=== PATIENT | female | born 1955 | race Caucasian/White ===

== ENCOUNTER 2018-03-29 18:28 | Inpatient (IN) | payer OTHER ==
[~2018-03-29] VITALS: Ht 152.4 cm; Wt 61.2 kg
[2018-03-29 18:37] VITALS: BP 122/64
[2018-03-29] MEDS ORDERED: AMOXICILLIN 50500 MG PO (18:42)
[2018-03-29] MEDS ORDERED: SIMVASTATIN40 MG PO (18:43)
[2018-03-29] MEDS ORDERED: AMLODIPINE BESY10 MG PO (18:43)
[2018-03-29] MEDS ORDERED: HYDROCODONE-AP1 EAC6 PO (18:43)
[2018-03-29] MEDS ORDERED: AMITRIPTYLINE H10 M1 PO (18:43)
[2018-03-29] MEDS ORDERED: [UNRECOGNIZED DRUG - REMARK] (18:45)
[2018-03-29] MEDS ORDERED: [UNRECOGNIZED DRUG - REMARK] (18:45)
[2018-03-29] MEDS ORDERED: ALLERGY PILL (18:45)
[2018-03-29] MEDS ORDERED: SYMBICORT80 MCG/4.1 INH (18:46)
[2018-03-29] MEDS ORDERED: SPIRIVA INH (18:46)
[2018-03-29] MEDS ORDERED: ACCUNEB SO1.25 MG/1 INH (18:46)
[2018-03-29] MEDS ORDERED: CENTRUM SILVER1 EAC4 PO (18:47)
[2018-03-29] MEDS ORDERED: FISH OIL 1,001000 M2 PO (18:47)
[2018-03-29 18:56] LABS: URINE BILIRUBIN NEGATIVE (Negative); URINE BLOOD NEGATIVE (Negative); URINE CLARITY CLEAR; URINE COLOR YELLOW; URINE GLUCOSE-RANDOM NEGATIVE (Negative); URINE KETONES 1+ (Negative); URINE LEUKOCYTES-REFLEX NEGATIVE (Negative); URINE NITRITE-REFLEX NEGATIVE (Negative); URINE PROTEIN NEGATIVE (Negative); URINE SPECIFIC GRAVITY 1.015 (1.005-1.030); URINE UROBILINOGEN 0.2 E.U./dl (0.2-1.0)
[2018-03-29 19:11] LABS: HEMATOCRIT 44.1 % (37.0-47.0); MCH 32.7 pg (26.0-34.0); MCHC 34.1 g/dL (28.0-37.0); MCV 95.9 fL (80.0-100.0); MPV 7.8 fl. (7.2-11.1); NUCLEATED RBCS 0 /100WBC; PLATELET COUNT* 316 thou/uL (150-400); RDW-CV 14.1 % (10.5-14.5); WBC 19.1 thou/uL (4.0-11.0)
[2018-03-29 19:19] LABS: APTT 26.8 Seconds (25.0-31.3)
[2018-03-29 19:20] LABS: CALCIUM 9.2 mg/dL (8.5-10.1); CREATININE 0.7 mg/dL (0.6-1.3); POTASSIUM 3.7 mmol/L (3.5-5.1)
[2018-03-29 19:24] LABS: ALBUMIN 3.5 g/dL (3.4-5.0); TOTAL BILIRUBIN 0.5 mg/dL (<0.1-1.0)
[2018-03-29 19:38] LABS: ABSOLUTE LYMPHOCYTES 1.9 thou/uL (0.8-5.3); ABSOLUTE MONOCYTES 1.9 thou/uL (0.0-1.2); ABSOLUTE NEUTROPHILS 15.3 thou/uL (1.6-8.1)
[2018-03-29 19:39] LABS: PLATELET ESTIMATE ADEQUATE
[2018-03-29 19:42] LABS: TOTAL PROTEIN 7.1 g/dL (6.4-8.2)
[2018-03-29] MEDS ORDERED: MUSCLE RELAXER (22:42)
[2018-03-29 22:50] VITALS: BP 102/51
[2018-03-29 23:15] VITALS: BP 112/61
[2018-03-30] MEDS ORDERED: PROTONIX40 M4 PO (05:31)
[2018-03-30] MEDS ORDERED: ZANAFLEX4 M2 PO (06:31)
[2018-03-30 08:04] VITALS: BP 115/57
[2018-03-30 16:03] VITALS: BP 119/60
[2018-03-30 23:51] VITALS: BP 100/57
[2018-03-31 04:05] LABS: HEMATOCRIT 37.6 % (37.0-47.0); MCH 32.4 pg (26.0-34.0); MCHC 33.6 g/dL (28.0-37.0); MCV 96.5 fL (80.0-100.0); MPV 7.9 fl. (7.2-11.1); RBC 3.89 mil/uL (4.20-5.00); WBC 11.9 thou/uL (4.0-11.0)
[2018-03-31 04:14] LABS: HEMOGLOBIN 12.6 gm/dL (12.0-15.0)
[2018-03-31 04:35] LABS: CALCIUM 8.8 mg/dL (8.5-10.1); CREATININE 0.8 mg/dL (0.6-1.3); MAGNESIUM 1.8 mg/dL (1.8-2.4); POTASSIUM 4.3 mmol/L (3.5-5.1)
[2018-03-31 08:20] VITALS: BP 106/55
[2018-03-31 15:52] VITALS: BP 98/52
[2018-03-31 20:36] VITALS: BP 112/55
[2018-04-01 04:28] LABS: HEMATOCRIT 38.9 % (37.0-47.0); HEMOGLOBIN 12.8 gm/dL (12.0-15.0); MCH 31.5 pg (26.0-34.0); MCHC 32.9 g/dL (28.0-37.0); MCV 95.7 fL (80.0-100.0); MPV 8.1 fl. (7.2-11.1); RBC 4.07 mil/uL (4.20-5.00); RDW-CV 13.8 % (10.5-14.5); WBC 11.5 thou/uL (4.0-11.0)
[2018-04-01 04:45] LABS: CALCIUM 8.3 mg/dL (8.5-10.1); CREATININE 0.5 mg/dL (0.6-1.3); MAGNESIUM 1.5 mg/dL (1.8-2.4); POTASSIUM 3.6 mmol/L (3.5-5.1)
[2018-04-01 08:20] VITALS: BP 123/63
[2018-04-01 15:54] VITALS: BP 124/60
[2018-04-02] VITALS: BP 111/63
[2018-04-02 04:21] LABS: HEMATOCRIT 39.3 % (37.0-47.0); HEMOGLOBIN 13.2 gm/dL (12.0-15.0); MCH 32.4 pg (26.0-34.0); MCHC 33.5 g/dL (28.0-37.0); MCV 96.8 fL (80.0-100.0); MPV 8.1 fl. (7.2-11.1); RBC 4.06 mil/uL (4.20-5.00)
[2018-04-02 04:47] LABS: CALCIUM 8.2 mg/dL (8.5-10.1); CREATININE 0.6 mg/dL (0.6-1.3); MAGNESIUM 1.7 mg/dL (1.8-2.4); POTASSIUM 3.5 mmol/L (3.5-5.1)
[2018-04-02 08:15] VITALS: BP 120/58
[2018-04-02 16:00] VITALS: BP 105/50
[2018-04-02 23:57] VITALS: BP 97/63
[2018-04-03 04:17] LABS: HEMATOCRIT 37.4 % (37.0-47.0); HEMOGLOBIN 12.5 gm/dL (12.0-15.0); MCHC 33.3 g/dL (28.0-37.0); MCV 96.1 fL (80.0-100.0); MPV 8.1 fl. (7.2-11.1); RBC 3.9 mil/uL (4.20-5.00); RDW-CV 14.1 % (10.5-14.5); WBC 12.8 thou/uL (4.0-11.0)
[2018-04-03 05:01] LABS: CALCIUM 8.2 mg/dL (8.5-10.1); CREATININE 0.5 mg/dL (0.6-1.3); MAGNESIUM 1.6 mg/dL (1.8-2.4); POTASSIUM 3.2 mmol/L (3.5-5.1)
[2018-04-03 08:20] VITALS: BP 111/60
[2018-04-04] VITALS: BP 114/46
[2018-04-04 04:25] LABS: CREATININE 0.6 mg/dL (0.6-1.3); POTASSIUM 4.4 mmol/L (3.5-5.1)
--- NOTE | 2018-04-04 07:19 | CON ---
[address] [address] CONSULTATION Name: SAUNDRA MUSA I Room: [address] IN .R.#: [id number] Admission: 03/29/18 Attend Phys: Anant Ford MD Discharge: Date of : 51 Report #: [id number] THIS REPORT FOR: //name// CC: Anant Phan DATE OF SERVICE: 04/01/2018 INFECTIOUS DISEASE CONSULTATION ATTENDING PHYSICIAN: Dr. Ford. REASON FOR EVALUATION: C. diff colitis. HISTORY OF PRESENT ILLNESS: Chart reviewed, patient examined. This is a 62-year-old with fairly extensive medical history including some COPD, who had developed some nausea with emesis and diarrhea, is fairly profound. A day or two prior to admission, noted temperatures which were high-grade in excess of 102 degrees Fahrenheit. This is in the setting of recent surgery on the right foot. She had been seen as an outpatient and felt to have a mild case of surgical site infection, was treated with amoxicillin. On evaluation, imaging suggested a diffuse colitis and now confirmed to have C. diff positive stool assay. She was started on combination therapy; however, experienced some worsening signs and symptoms in terms of GI distress and nausea with Flagyl. This was discontinued. Of note, with high-grade fevers of uncertain cause, she has had a cough, although chest x-ray was otherwise unremarkable. Additional history includes significant weight loss over the course of last 1 to 2 months up to 20-25 pounds. She is lucid. ALLERGIES: SULFA. MEDICATIONS: Include lactobacillus, tizanidine, atorvastatin, amitriptyline, ipratropium, vancomycin orally 250 p.o. q.i.d., pantoprazole, fish oil, budesonide. PAST MEDICAL HISTORY: As noted above, COPD, hypertension, and some sort of cancer, genital related. PAST SURGICAL HISTORY: She is post-hysterectomy, dysplasia in the vaginal area, also cholecystectomy. SOCIAL HISTORY: Smokes a pack a day, 40-year pack history. FAMILY HISTORY: Noncontributory. REVIEW OF SYSTEMS: [place] [address] CONSULTATION Name: SAUNDRA MUSA [place] Room: [address]#: [id number] Admission: 03/29/18 Attend Phys: Anant Ford MD Discharge: Date of : 51 Report #: [id number] PHYSICAL EXAMINATION: GENERAL: She is pleasant, alert, cooperative. She appears somewhat chronically ill, mildly undernourished, cyij-hl-mfehdabr distress. VITAL SIGNS: Temperature now 99.5, pulse 92, respirations 18, blood pressure 112/55. Review of the previous, there may well be a temperature-pulse dissociation. HEENT: Otherwise, unremarkable. NECK: Supple. LUNGS: Somewhat diminished, has few basilar crackles. HEART: Regular. I do not appreciate any murmur. ABDOMEN: Soft, mildly distended. There are no overt peritoneal signs. GENITOURINARY AND RECTAL: Deferred. LABORATORY DATA: Most recent CBC: Initial white count was 19.1, H and H 12.8 and 38.9, platelets of 278. C. diff was positive. Electrolytes: Sodium 137, potassium 3.6, chloride 103, bicarbonate is 24, anion gap of 10, BUN and creatinine 6 and 0.5. Estimated GFR of 124. Blood cultures are sterile thus far. CT abdomen and pelvis showed diffuse edematous mural thickening throughout the colon and rectum. Lactic acid of 0.9. Chest x-ray, no acute cardiopulmonary process. Urinalysis unremarkable. ASSESSMENT: Clostridium difficile colitis. Certainly, the risk factor suggests recent broad-spectrum therapy with amoxicillin to treat surgical site infection involving the right foot. There are some atypical features, I think with high grade fevers, which is somewhat unusual and fairly pronounced weight loss. This was pre-infection I believe too. As part of the workup, a CT did not show any occult process, certainly raises a question of potential and more significant issue. We will see how she does clinically. I suspect she will need a tapering dose of oral vancomycin over the course of 4-6 weeks. I would continue on 4 times a day at present. <ELECTRONICALLY SIGNED> By: Roverto Vargas MD 04/04/18 0719 [id number] Vargas MD /nt
[2018-04-04 08:10] VITALS: BP 121/64
[2018-04-04 16:48] VITALS: BP 111/62
[2018-04-04 19:50] VITALS: BP 110/68
[2018-04-05 07:30] LABS: HEMATOCRIT 35.6 % (37.0-47.0); HEMOGLOBIN 12.1 gm/dL (12.0-15.0); MCH 32.2 pg (26.0-34.0); MCHC 33.9 g/dL (28.0-37.0); MCV 95.1 fL (80.0-100.0); MPV 6.6 fl. (7.2-11.1); RBC 3.75 mil/uL (4.20-5.00); RDW-CV 14.3 % (10.5-14.5); WBC 10.7 thou/uL (4.0-11.0)
[2018-04-05 07:52] LABS: CALCIUM 8.2 mg/dL (8.5-10.1); CREATININE 0.5 mg/dL (0.6-1.3)
[2018-04-05 08:00] VITALS: BP 122/57
[2018-04-05 15:22] VITALS: BP 110/68
[2018-04-05 19:20] LABS: ALBUMIN 2.1 g/dL (3.4-5.0); DIRECT BILIRUBIN 0.1 mg/dL (<0.1-0.3); TOTAL BILIRUBIN 0.4 mg/dL (<0.1-1.0); TOTAL PROTEIN 5.3 g/dL (6.4-8.2)
[2018-04-06 01:01] VITALS: BP 147/73
[2018-04-06 04:47] LABS: ABSOLUTE EOSINOPHILS 0.1 thou/uL (0.0-0.7); ABSOLUTE LYMPHOCYTES 1.3 thou/uL (0.8-5.3); ABSOLUTE MONOCYTES 1.3 thou/uL (0.0-1.2); ABSOLUTE NEUTROPHILS 6.7 thou/uL (1.6-8.1); BASOPHILS 0.4 %; HEMATOCRIT 35.5 % (37.0-47.0); LYMPHOCYTES 14.3 %; MCH 32.3 pg (26.0-34.0); MCHC 33.8 g/dL (28.0-37.0); MCV 95.6 fL (80.0-100.0); MONOCYTES 13.4 %; MPV 7.1 fl. (7.2-11.1); NUCLEATED RBCS 0 /100WBC; PLATELET COUNT* 421 thou/uL (150-400); POLYS 70.9 %; RBC 3.71 mil/uL (4.20-5.00); RDW-CV 14.1 % (10.5-14.5); WBC 9.4 thou/uL (4.0-11.0)
[2018-04-06 04:56] LABS: ALBUMIN 1.9 g/dL (3.4-5.0); CALCIUM 8.2 mg/dL (8.5-10.1); CREATININE 0.5 mg/dL (0.6-1.3); TOTAL BILIRUBIN 0.4 mg/dL (<0.1-1.0)
[2018-04-06 05:27] LABS: PREALBUMIN 10.2 mg/dL (18.0-35.7)
[2018-04-06 07:10] LABS: ESR (SEDRATE) 45 mm/hr (0-30)
[2018-04-06 10:30] VITALS: BP 112/62
[2018-04-06 15:50] VITALS: BP 99/48
[2018-04-06 23:47] VITALS: BP 118/49
[2018-04-07 02:10] LABS: HEPATITIS B SURFACE AG Negative (Negative); HIV-1/HIV-2 ANTIBODY Non Reactive (Non Reactive)
[2018-04-07 04:07] LABS: ABSOLUTE EOSINOPHILS 0.1 thou/uL (0.0-0.7); ABSOLUTE LYMPHOCYTES 1.3 thou/uL (0.8-5.3); ABSOLUTE MONOCYTES 1.1 thou/uL (0.0-1.2); BASOPHILS 0.3 %; EOSINOPHILS 1.3 %; HEMOGLOBIN 11.9 gm/dL (12.0-15.0); LYMPHOCYTES 14.1 %; MCH 32.3 pg (26.0-34.0); MPV 6.7 fl. (7.2-11.1); NUCLEATED RBCS 0 /100WBC; PLATELET COUNT* 444 thou/uL (150-400); POLYS 73.3 %; RBC 3.68 mil/uL (4.20-5.00); RDW-CV 14.1 % (10.5-14.5); WBC 9.6 thou/uL (4.0-11.0)
[2018-04-07 04:25] LABS: CALCIUM 8.1 mg/dL (8.5-10.1); CREATININE 0.4 mg/dL (0.6-1.3); POTASSIUM 3.8 mmol/L (3.5-5.1); PREALBUMIN 12.5 mg/dL (18.0-35.7); TOTAL BILIRUBIN 0.4 mg/dL (<0.1-1.0); TOTAL PROTEIN 5.2 g/dL (6.4-8.2)
[2018-04-07 08:00] VITALS: BP 121/65
[2018-04-07 16:15] VITALS: BP 120/59
[2018-04-08 00:12] VITALS: BP 116/61
[2018-04-08 08:00] VITALS: BP 124/70
[2018-04-08 15:32] VITALS: BP 113/53
[2018-04-09 01:11] VITALS: BP 114/55
[2018-04-09 07:30] VITALS: BP 121/62
[2018-04-09 16:00] VITALS: BP 140/72
[2018-04-10 03:24] VITALS: BP 103/48
[2018-04-10 08:00] VITALS: BP 125/67
[2018-04-10 17:00] VITALS: BP 109/56
[2018-04-10 23:53] VITALS: BP 110/51
[2018-04-11 08:50] VITALS: BP 121/68
--- NOTE | 2018-04-11 16:57 | CON ---
[address] [address] CONSULTATION Name: SAUNDRA MUSA I Room: [address] IN .R.#: [id number] Admission: 03/29/18 Attend Phys: Anant Ford MD Discharge: Date of : 51 Report #: [id number] THIS REPORT FOR: //name// CC: Anant Geiger DO DICTATED BY: Camille Rajput [facility] DATE OF SERVICE: 04/05/2018 Please note at the time of this dictation, the patient was seen and physically examined by myself. REASON FOR CONSULTATION: Ongoing right-sided abdominal pain and C. diff with nausea and vomiting. HISTORY OF PRESENT ILLNESS: This is a 62-year-old female who presented to the Emergency Room on 03/29 with fever, nausea and vomiting associated with diarrhea that started that morning. The patient had recently undergone an EGD and colonoscopy back in the middle part of February for her dysphagia and screening colon. She was noted to have a patchy moderate inflammation in the gastric body. She was dilated with a 54-Swedish with mild resistance noted and negative for H. pylori. Colonoscopy showed large amount of stool throughout the colon. It was suboptimal prep with internal and external hemorrhoids noted at that time. The patient states she has had issues with constipation, her entire life. She started using a new herbal supplement, which was helping and she was going about every 3 days; however, she had her right bunionectomy done on 03/17 and she had not gone to the bathroom until the that evening. The night before her admission when she was having the fever and chills, nausea, vomiting, she had 2 very large BMs followed with diarrhea at that time. She had been on antibiotics since her foot surgery as well. The patient is currently followed by ID and she was noted to have C. diff on admission. She has been on vancomycin and also on Dificid currently. The patient now still has persistent right-sided abdominal pain. She has significant gas and bloating. She feels very distended, although she has had 6 liquid stools currently thus far today. She has ongoing nausea, which has not improved and has no appetite. ALLERGIES: SULFA. MEDICATIONS UPON ADMISSION: Amoxicillin, hydrocodone, amitriptyline, amlodipine, simvastatin, Symbicort, Spiriva, fish oil, albuterol solution. PAST MEDICAL HISTORY: COPD, hypertension. She has had some cervical cancer. PAST SURGICAL HISTORY: Right bunionectomy, hysterectomy, [place] [address] CONSULTATION Name: LENCHOSAUNDRA Bethel Room: [address]#: [id number] Admission: 03/29/18 Attend Phys: Anant Ford MD Discharge: Date of : 51 Report #: [id number] LASIK surgery. FAMILY HISTORY: Mother had cervical cancer. SOCIAL HISTORY: She smokes less than a pack a day. Denies any alcohol or illegal drug use. REVIEW OF SYSTEMS: Twelve-point review of systems is essentially negative except what is mentioned in the HPI. PHYSICAL EXAMINATION: VITAL SIGNS: Temperature 37.8, pulse 89, respirations 18, blood pressure 122/57. HEART: Regular rate and rhythm. LUNGS: Diminished, but clear. ABDOMEN: Distended, somewhat firm. Hypoactive bowel sounds and generalized tenderness throughout the entire abdomen. LABORATORY DATA: Hemoglobin 12.1; hematocrit 35.6; white count on admission was 19.1, she is down to 10.7; platelets 394. Sodium 134, potassium 4, chloride 99, CO2 of 32, BUN is 7, creatinine is 0.5, GFR is 129, glucose is 126. Total bilirubin 0.5, alkaline phosphatase 173, ALT 66, AST 33. PT is 10, INR is 1. CT on admission showed diffuse edema and mural thickening throughout the entire colon and in the rectum and nonspecific colitis noted at that time and she was positive for C. diff. IMPRESSION: 1. Abdominal pain, right sided. 2. Nausea. 3. Gas and bloating. 4. Positive for Clostridium difficile. 5. Leukocytosis. 6. Chronic constipation. Surgery on 03/17, no bowel movement until 03/28, the day before admission. PLAN: 1. Abdominal x-ray now. 2. We will consider repeating CT depending on findings of abdominal x-ray. 3. Continue her vancomycin and Dificid. 4. Consider scopolamine patch. 5. Further recommendations to be made once the above have been noted and reviewed. Thank you for allowing us to participate in this patient's care. Please do not hesitate to call with any questions in regard to this consult. [address] [address] CONSULTATION Name: SAUNDRA MUSA I Room: [address] IN M.R.#: [id number] Admission: 03/29/18 Attend Phys: Anant Ford MD Discharge: Date of : 51 Report #: [id number] ADDENDUM I have seen and examined the patient and agree with plan that has been outlined by our nurse practitioner, Camille Rajput. I am very concerned, however, that the patient has not turned the corner or improved greatly within next 24-48 hours. With the newly initiated Dificid, I recommend she be transferred to the medical service at [facility] to undergo a colonoscopy with fecal transplant by our service the following day. In the interim, I am going to add some fentanyl IV to control her pain and repeat a CT scan tomorrow to assess the colonic wall thickening and distention to ensure she does not develop any toxic colitis. In addition, we will add some Bentyl before meals to help with abdominal cramping. I will continue her on low-residue diet for now as tolerated. I have discussed this plan with the patient as well as her and they are agreeable to the same. In addition, since the patient may need a fecal transplant, I have ordered labs that are necessary prior to initiation of the same including an acute hepatitis panel and RPR and HIV test. These tests do not need to be resulted before getting fecal transplant, they just need to be drawn prior to the same. One should also note that the patient has a high risk for relapsing Clostridium difficile when she has completed treatment and that we will need to watch her carefully post discharge. <ELECTRONICALLY SIGNED> By: Luke Peres DO 04/11/18 1657 [id number] Peres DO /nt
[2018-04-11 17:27] VITALS: BP 124/63
[2018-04-11 23:48] VITALS: BP 104/55
[2018-04-12 09:30] VITALS: BP 117/61
[2018-04-12] MEDS ORDERED: CELEBREX 200 M200 M1 PO (13:51)
[2018-04-12] MEDS ORDERED: HYDROCODONE-AP1 EAC6 PO (13:51)
[2018-04-12 14:21] VITALS: BP 117/61
[2018-04-12] MEDS ORDERED: VANCOMYCIN HCL250 MG PO (15:21)
[2018-04-12] MEDS ORDERED: MINOCIN100 MG PO (15:21)
== END 2018-04-12 16:19 | disposition home or self-care (01) | DRG 872 ==
LOC: M.ERS 18:28 → M.3W 21:34 → M.TBA-ER 21:34 → M.3W 22:58
PROVIDERS: Internal Medicine; Internal Medicine Gastroenterology; Nurse Practitioner Family; ADMIT Internal Medicine
DX: A41.9 Sepsis, unspecified organism (principal); E44.1 Mild protein-calorie malnutrition; K51.30 Ulcerative (chronic) rectosigmoiditis without complications; A04.72 Enterocolitis due to Clostridium difficile, not specified as recurrent; J44.9 Chronic obstructive pulmonary disease, unspecified; I10 Essential (primary) hypertension; F17.210 Nicotine dependence, cigarettes, uncomplicated; E86.9 Volume depletion, unspecified; K59.09 Other constipation; T36.95XA Adverse effect of unspecified systemic antibiotic, initial encounter; F32.9 Major depressive disorder, single episode, unspecified; B37.3 Candidiasis of vulva and vagina; L03.011 Cellulitis of right finger; Z79.899 Other long term (current) drug therapy; Z88.2 Allergy status to sulfonamides; Z85.9 Personal history of malignant neoplasm, unspecified; Z90.49 Acquired absence of other specified parts of digestive tract; Z90.710 Acquired absence of both cervix and uterus; Z68.26 Body mass index [BMI] 26.0-26.9, adult; Y92.89 Other specified places as the place of occurrence of the external cause